=== PATIENT | female | born 1960 | race Caucasian/White ===

== ENCOUNTER 2022-01-11 15:55 | Emergency (ER) | payer OTHER, SELFPAY ==
--- NOTE | ~2022-01-11 | XR_ITS ---
EXAMINATION: XR tibia fibula LT 2V DATE: 01/11/2022 16:39 INDICATION: Left lower leg injury. TECHNIQUE: 2 views of left tibia and fibula were obtained. COMPARISON: None. FINDINGS: Bone alignment is normal. No fracture. There is mild left knee osteoarthritis. IMPRESSION: 1. Mild left knee osteoarthritis. Reviewed, dictated and finalized at location A. ENSATION ANALYST
[2022-01-11 17:19] VITALS: BP 149/74; PULSE 98; RESP 14; TEMP 36.8; O2SAT 98
--- NOTE | 2022-01-11 20:05 | ED.GENADULT ---
HPI - General Adult General Chief complaint: Extremity Injury, Lower <Charli Ramesh MD - Last Filed: 01/12/22 02:34> Stated complaint: fell through a pallet <Charli Ramesh MD - Last Filed: 01/12/22 02:34> Time Seen by Provider: 01/11/22 19:48 <Charli Ramesh MD - Last Filed: 01/12/22 02:34> History of Present Illness HPI narrative: 61-year-old female presenting to the emergency department for evaluation of an injury to her left leg. Patient states she was standing on a pallet and fell through which resulted in injury to her left leg. Patient was seen at [facility] care but was instructed to present to the emergency department for evaluation. Patient denies any pain or injury but does have a laceration to her left anterior oh. <Charli Ramesh MD - Last Filed: 01/12/22 02:34> Related Data Allergies/adverse reactions: Allergies Allergy/AdvReac Type Severity Reaction Status Date / Time bacitracin Allergy Intermediate ENLARGES Verified 01/11/22 19:46 SKIN LESIONS, INCREASED REDNESS gramicidin D Allergy Intermediate ENLARGES Verified 01/11/22 19:46 SKIN LESIONS, INCREASED REDNESS polymyxin B Allergy Intermediate ENLARGES Verified 01/11/22 19:46 SKIN LESIONS, INCREASED REDNESS BACITRACIN ZINC Allergy Intermediate ENLARGES Uncoded 01/11/22 19:46 SKIN LESIONS, INCREASED REDNESS NEOMYCIN SULFATE Allergy Intermediate ENLARGES Uncoded 01/11/22 19:46 SKIN LESIONS, INCREASED REDNESS POLYMYXIN B SULFATE Allergy Intermediate ENLARGES Uncoded 01/11/22 19:46 SKIN LESIONS, INCREASED REDNESS <Charli Ramesh MD - Last Filed: 01/12/22 02:34> Review of Systems Review of Systems: CONSTITUTIONAL: Denies fever, chills, or sweats. EYES: Denies visual changes, redness, or discharge. ENT: Denies rhinorrhea, congestion, sore throat, or otalgia. CARDIOVASCULAR: Denies chest pain, palpitations, or edema. RESPIRATORY: Denies cough or dyspnea. GASTROINTESTINAL: Denies abdominal pain, nausea, vomiting, or diarrhea. GENITOURINARY: Denies dysuria or hematuria. SKIN: See HPI MUSCULOSKELETAL: Denies back pain, joint pain, or myalgia. NEUROLOGIC: Denies headache, numbness, or weakness. <Charli Ramesh MD - Last Filed: 01/12/22 02:34> [facility] Family History Family History: Family History (Updated 10/01/15 @ 23:21 by DOCTOR UNKNOWN) Mother Patient's mother is in good health Sibling Patient's brother is in good health Father Cerebrovascular accident Family history of diabetes mellitus in first degree relative Patient's father is <Charli Ramesh MD - Last Filed: 01/12/22 02:34> Social History Social History: Social History Smoking status: Never smoker Alcohol intake: current <Charli Ramesh MD - Last Filed: 01/12/22 02:34> Exam Narrative: APPEARANCE: Well appearing, no pain, no distress, well-nourished. HEAD: normocephalic, atraumatic. EYES: PERRLA/EOMI, conjunctivae clear. NOSE: Normal no drainage NECK: Supple. No adenopathy, no masses. RESPIRATORY: Airway patent, respirations nonlabored. Clear to auscultation bilaterally, no rales, rhonchi, wheezing. CARDIOVASCULAR: Regular rate and rhythm without murmurs rubs or gallops. ABDOMINAL: Soft, nontender, nondistended, normal bowel sounds MUSCULOSKELETAL: Moves all extremities. Strength/ROM intact, No edema, No calf tenderness. NEURO: Alert. Cranial nerves II through XII intact. Grossly intact SKIN: Laceration to left anterior oh <Charli Ramesh MD - Last Filed: 01/12/22 02:34> Course Course Emergency Course: Laceration was repaired as described above. Patient and family were updated on the results of the x-rays. All questions concerns were addressed. Patient was well-appearing at discharge. <Charli Ramesh MD - Last Filed: 01/12/22 02:34> Vital Signs Vital s
[2022-01-11 21:25] VITALS: BP 135/73; PULSE 73; RESP 18; O2SAT 98
== END 2022-01-11 21:30 | disposition home or self-care (01) ==
LOC: ANHED 21:04
PROVIDERS: Emergency Provider Emergency Medicine; PCP Family Medicine Adolescent Medicine
DX: S81.812A Laceration without foreign body, left lower leg, initial encounter (principal); W13.8XXA Fall from, out of or through other building or structure, initial encounter
CPT/HCPCS: 12002; 73590; 99283

== ENCOUNTER 2024-04-24 09:51 | Outpatient (CLI) | payer MEDICARE, BC, SELFPAY ==
--- NOTE | ~2024-04-24 | XR_ITS ---
EXAMINATION: XR chest 2V 04/24/2024 11:17 INDICATION: Uveitis PROCEDURE: 2 view chest COMPARISON: No prior studies for comparison. FINDINGS: The lungs are clear. The cardiomediastinal silhouette is within normal limits. There are no pleural effusions. There is no pneumothorax suspected. IMPRESSION: 1: NO ACUTE CARDIOPULMONARY DISEASE. Reviewed, dictated and finalized at location B. ATTENDANT
[2024-04-24 11:16] LABS: Basophils Percent Auto 0.5 % (0.2-1.2); Eosinophils Absolute Auto 0.2 K/mm3 (0-0.3); Eosinophils Percent Auto 2.9 % (0-4.4); Hematocrit 42.7 % (37.0-47.0); Hemoglobin 13.6 g/dL (12.0-15.0); Immature Granulocyte Absolute 0.02 K/mm3 (0.00-0.031); Immature Granulocyte Percent A 0.2 % (0-0.5); Immature Platelet Fraction Pct 2.7 % (0.9-11.2); Lymphocytes Absolute Auto 1.35 K/mm3 (0.9-3.2); Lymphocytes Percent Auto 16.5 % (18.3-44.2); Mean Corpuscular HGB Conc 31.9 g/dl (32-36); Mean Corpuscular Hemoglobin 29.2 pg (26-34); Mean Corpuscular Volume 91.8 fl (80-100); Mean Platelet Volume 10.2 fl (7.4-10.4); Monocytes Absolute Auto 0.3 K/mm3 (0.1-0.6); Monocytes Percent Auto 3.9 % (2.6-8.5); Neutrophils Absolute Auto 6.2 K/mm3 (1.3-6.7); Platelet Count Result 213 k/mm3 (150-375); Red Blood Count 4.65 M/mm3 (4.2-5.4); Red Cell Distribution Width 13.5 % (11.5-14.5); White Blood Count 8.2 K/mm3 (4.5-10.0)
[2024-04-24 11:28] LABS: Alanine Aminotransferase 21 U/L (6-35); Albumin Level 4.7 g/dL (3.5-5.1); Alkaline Phosphatase 137 U/L (38-126); Anion Gap 13 mmol/L (4-12); Aspartate Amino Transferase 28 U/L (14-36); Bilirubin,Total 0.7 mg/dL (0.2-1.3); Blood Urea Nitrogen 10 mg/dL (7-17); CRP 0.5 mg/dL (<1.0); Calcium 9.8 mg/dL (8.4-10.2); Carbon Dioxide 25 mmol/L (22-30); Chloride 103 mmol/L (98-107); Cholesterol 282 mg/dL (0-200); Estimated Glomerular Filt Rate > 60; Glucose 96 mg/dL (65-110); HDL Direct 90 mg/dL; Potassium 4.1 mmol/L (3.4-5.0); Sodium 141 mmol/L (137-145); Triglycerides 111 mg/dL (<150)
[2024-04-24 11:29] LABS: Rheumatoid Factor < 12.0 IU/ML (<12)
[2024-04-24 11:37] LABS: LDL Cholesterol Direct 165 mg/dL
[2024-04-24 11:58] LABS: Syphilis IgG/IgM Antibody Negative (Negative)
[2024-04-24 12:08] LABS: Hemoglobin A1C 6.2 % (<5.7)
[2024-04-24 12:15] LABS: Hepatitis C Virus Antibody Negative (Negative)
[2024-04-24 12:53] LABS: Erythrocyte Sedimentation Rate 14 mm/hr (0-20)
[2024-04-25 15:23] LABS: Angiotensin Converting Enzyme 45 U/L (9-67)
[2024-04-28 08:15] LABS: HLA B27 Positive
[2024-04-29 13:08] LABS: NIL 0.03 IU/mL; Quantiferon TB Plus, 1T NEGATIVE (NEGATIVE); TB2-NIL <0.00 IU/mL
[2024-04-29 21:49] LABS: Treponema pallidum Ab FTA ABS NON-REACTIVE
[2024-04-30 12:54] LABS: Reference Lab Test Name HLA A29 Determinatio
[2024-04-30 13:01] LABS: Reference Lab Test Result Negative
[2024-05-07 10:30] LABS: Reference Lab Test Name Lysozyme
[2024-05-07 10:33] LABS: Reference Lab Test Result 7.8
== END 2024-04-24 09:52 | disposition home or self-care (01) ==
LOC: ANHLAB 10:02
PROVIDERS: PCP Family Medicine Adolescent Medicine; Referring Provider Ophthalmology Retina Specialist; Visit Provider Nurse Practitioner Family
DX: H30.93 Unspecified chorioretinal inflammation, bilateral (principal); H44.113 Panuveitis, bilateral; R73.03 Prediabetes; Z11.3 Encounter for screening for infections with a predominantly sexual mode of transmission; Z13.220 Encounter for screening for lipoid disorders; Z11.59 Encounter for screening for other viral diseases
CPT/HCPCS: 36415; 71046; 80053; 80061; 81381; 82164; 83036; 85025; 85055; 85549; 85652; 86038; 86039; 86140; 86430; 86480; 86593; 86780; 86803; 86812

== ENCOUNTER 2024-05-01 15:29 | Outpatient (CLI) | payer MEDICARE, SELFPAY ==
[2024-05-05 15:14] LABS: NIL 0.02 IU/mL; Quantiferon TB Plus, 1T NEGATIVE (NEGATIVE); TB1-NIL <0.00 IU/mL; TB2-NIL <0.00 IU/mL
== END 2024-05-01 15:30 | disposition home or self-care (01) ==
PROVIDERS: PCP Family Medicine Adolescent Medicine
DX: H30.93 Unspecified chorioretinal inflammation, bilateral (principal)
CPT/HCPCS: 36415; 86480

== ENCOUNTER 2024-08-19 02:21 | Day surgery (SDC) | payer MEDICARE, SELFPAY ==
[2024-08-08 09:00] VITALS: BMI 24.7
[2024-08-19 07:14] VITALS: BP 147/66; PULSE 74; RESP 18; TEMP 36.8; O2SAT 99; BMI 24.7
[2024-08-19] MEDS: LACTATED RINGERS 1,000 ML 150 ML IV CONT (07:32)
--- NOTE | 2024-08-19 08:00 | P.PNAN_ITS ---
Anes - Initial Pre Proc Eval Procedure: Operation Date: 08/19/24 08:30 Proposed Procedures p Screening Colonoscopy - Fernando Mack MD Date/Time: 08/19/24 08:00 Surgeon: Fernando Mack MD Pre Op Diagnosis: Screening Patient Data Age: 63 Gender: F Height: 1.65 m Weight: 67.5 kg Last Vital Signs Temp 36.8 C 08/19/24 07:14 Pulse 74 08/19/24 07:14 Resp 18 08/19/24 07:14 BP 147/66 H 08/19/24 07:14 Pulse Ox 99 08/19/24 07:14 O2 Del Method Room Air 08/19/24 07:14 Allergies Allergy/AdvReac Type Severity Reaction Status Date / Time bacitracin Allergy Intermediate ENLARGES Verified 08/19/24 07:22 SKIN LESIONS, INCREASED REDNESS gramicidin D Allergy Intermediate ENLARGES Verified 08/19/24 07:22 SKIN LESIONS, INCREASED REDNESS polymyxin B Allergy Intermediate ENLARGES Verified 08/19/24 07:22 SKIN LESIONS, INCREASED REDNESS neomycin (From Triple Allergy Other Verified 08/19/24 07:22 Antibiotic) Wasps Allergy Severe Hives Uncoded 08/19/24 07:22 BACITRACIN ZINC Allergy Intermediate ENLARGES Uncoded 08/19/24 07:22 SKIN LESIONS, INCREASED REDNESS NEOMYCIN SULFATE Allergy Intermediate ENLARGES Uncoded 08/19/24 07:22 SKIN LESIONS, INCREASED REDNESS POLYMYXIN B SULFATE Allergy Intermediate ENLARGES Uncoded 08/19/24 07:22 SKIN LESIONS, INCREASED REDNESS Home Medications ?Medication ?Instructions ?Recorded ?Confirmed ?Type prednisolone acetate 1 % eye 1 drp EACH EYE Q6H 08/08/24 08/19/24 History drops,suspension Patient hx anesthesia problems: none Family hx anesthesia problems: none Results Review: All pre-operative results and documents have been reviewed as part of the pre- operative evaluation. [facility] Past Medical History Medical History Uveitis Family History Family History Mother Patient's mother is in good health Sibling Patient's brother is in good health Father Cerebrovascular accident Family history of diabetes mellitus in first degree relative Patient's father is Social History Social History Smoking status: Never smoker Alcohol intake: current Substance use: never Substance use type: does not use Occupation/Education: occupation Additional occupation/education comments: [employer] Final PreProcedure Day of Procedure 08/19/24 08:00 Patient weight: normal Heart: regular rate and rhythm Lungs: clear to auscultation Airway: Mallampati scale class III Neurological: alert and oriented Last oral intake: >/= 8 hours ASA classification: I Emergent: no Anesthetic plan: proceed Anesthesia type and monitoring: general GIVS and standard monitoring Results Review: All pre-operative results and documents have been reviewed as part of the pre- operative evaluation. Informed Consent: The patient's anesthetic plan and its attendant risks and benefits were discussed with the patient/family/POA. Questions were solicited and answers provided to the satisfaction of the patient/family/POA.
--- NOTE | 2024-08-19 08:08 | P.HP_ITS ---
H&P: HPI History of Present Illness Date/Time: 08/19/24 08:08 Chief Complaint: Screening colonoscopy Narrative: This is the patient's second colonoscopy. There are no GI symptoms and there is no family history of colorectal cancer. Review of Systems Review of Systems: All systems reviewed & are unremarkable except as noted in HPI and below PMFSH Past Medical History Medical History Uveitis Family History Family History Mother Patient's mother is in good health Sibling Patient's brother is in good health Father Cerebrovascular accident Family history of diabetes mellitus in first degree relative Patient's father is Social History Social History Smoking status: Never smoker Alcohol intake: current Substance use: never Substance use type: does not use Occupation/Education: occupation Additional occupation/education comments: [employer] Meds Home Medications and Allergies Home Medications ?Medication ?Instructions ?Recorded ?Confirmed ?Type prednisolone acetate 1 % eye 1 drp EACH EYE Q6H 08/08/24 08/19/24 History drops,suspension Allergies Allergy/AdvReac Type Severity Reaction Status Date / Time bacitracin Allergy Intermediate ENLARGES Verified 08/19/24 07:22 SKIN LESIONS, INCREASED REDNESS gramicidin D Allergy Intermediate ENLARGES Verified 08/19/24 07:22 SKIN LESIONS, INCREASED REDNESS polymyxin B Allergy Intermediate ENLARGES Verified 08/19/24 07:22 SKIN LESIONS, INCREASED REDNESS neomycin (From Triple Allergy Other Verified 08/19/24 07:22 Antibiotic) Wasps Allergy Severe Hives Uncoded 08/19/24 07:22 BACITRACIN ZINC Allergy Intermediate ENLARGES Uncoded 08/19/24 07:22 SKIN LESIONS, INCREASED REDNESS NEOMYCIN SULFATE Allergy Intermediate ENLARGES Uncoded 08/19/24 07:22 SKIN LESIONS, INCREASED REDNESS POLYMYXIN B SULFATE Allergy Intermediate ENLARGES Uncoded 08/19/24 07:22 SKIN LESIONS, INCREASED REDNESS Vital Signs Vital Signs - 24 hr 08/19/24 07:14 Temperature 98.2 F Pulse Rate 74 Respiratory Rate 18 Blood Pressure 147/66 H Pulse Oximetry 99 Oxygen Delivery Room Air Exam Const: General: cooperative and healthy appearing Resp: Effort & Inspection: normal respiratory effort and able to speak in complete sentences Auscultation: clear to auscultation bilaterally Cardio: Rate: regular rate Rhythm: regular rhythm GI: Inspection: normal to inspection GI Palp: No No hepatosplenomegaly p resent Auscultation: normal bowel sounds Rectal Exam: deferred Skin: General skin exam: normal color Psych: Appearance: grossly normal Mental Status: mental status grossly normal Assessment and Plan Assessment and plan (1) Colon cancer screening: Code(s): Z12.11 - Encounter for screening for malignant neoplasm of colon Status: Acute Assessment and Plan: The patient is deemed a good candidate for the procedure. Consent signed. Will proceed.
--- NOTE | 2024-08-19 08:28 | S_PTH ---
PATIENT: Emy Love LOC: [facility] U#:[id number] AGE/SX: 63/F ROOM: RE08/19/[address]: Fernando Mack MD : 1960 BED: DIS: 08/19/2024 SPEC #: [id number] RECD: 08/19/24 10:18 STATUS: LAURIE REQ #: [id number] NAVI: 08/19/24 08:[address]: Fernando Mack DEPT: [facility] Surgical RECD BY: Santi Clemente ENTERED: 08/19/24 10:19 SP TYPE: Surgical OTHR DR: Oj Rush MD Tissues: A - Colon Polypectomy Procedures: Hematoxylin and Eosin Stain Gross and Microscopic Level 4
[2024-08-19 08:32] VITALS: BP 136/87; PULSE 74; RESP 25; O2SAT 100
[2024-08-19 08:42] VITALS: BP 132/86; PULSE 82; RESP 14; O2SAT 100
[2024-08-19 08:52] VITALS: BP 137/85; PULSE 67; RESP 15; O2SAT 100
== END 2024-08-19 09:01 | disposition home or self-care (01) ==
PROVIDERS: PCP Family Medicine Adolescent Medicine; Visit Provider Internal Medicine Gastroenterology
PROC: 0DJD8ZZ Inspection of Lower Intestinal Tract, Via Natural or Artificial Opening Endoscopic (ICD-10-PCS; CPT 45378; principal; 2024-08-19 08:30)
DX: Z12.11 Encounter for screening for malignant neoplasm of colon (principal); D12.2 Benign neoplasm of ascending colon; K64.8 Other hemorrhoids; Z79.52 Long term (current) use of systemic steroids; Z82.49 Family history of ischemic heart disease and other diseases of the circulatory system
CPT/HCPCS: 45385; 88305; J2003; J2704; J7120